=== PATIENT | male | born 1960 | race Caucasian/White ===

== ENCOUNTER 2021-05-11 09:50 | Outpatient (CLI) | payer OTHER ==
[~2021-05-11] VITALS: Ht 201 cm; Wt 98.9 kg
[2021-05-11 09:54] VITALS: BP 165/75
[2021-05-11] MEDS ORDERED: diphenhydrAMINE 50 MG/ML INJ (BENADRYL) IV PRN (10:00)
[2021-05-11] MEDS ORDERED: ACETAMINOPHEN 500 MG TAB (TYLENOL) PO PRN (10:00)
[2021-05-11] MEDS ORDERED: ONDANSETRON 4 MG/2 ML (SDV) Z0FRAN IV PRN (10:00)
[2021-05-11] MEDS ORDERED: EPINEPHrine INJECTION 1 MG/ML AMP IM PRN (10:00)
[2021-05-11] MEDS ORDERED: SOTROVIMAB 500 MG/NS 50 ML IVPB IV ONE ×2 (10:00)
[2021-05-11 11:18] VITALS: BP 168/87
== END 2021-05-11 11:34 ==
LOC: INFUSION 09:50
PROVIDERS: ATTEND Internal Medicine Endocrinology, Diabetes & Metabolism
DX: U07.1 COVID-19 (principal)